=== PATIENT | female | born 1955 ===

== ENCOUNTER 2016-11-27 20:50 | Emergency (ER) | payer OTHER ==
[2016-11-27 21:04] VITALS: BP 136/86; PULSE 75; TEMP 97.5; O2SAT 98
[2016-11-27] MEDS ORDERED: Bacitracin 500 Units/gm Oint Foilpak UD TOP ONE (21:34)
--- NOTE | 2016-11-27 21:34 | C.PDOC ---
History Of Present Illness 61 y/o female comes to ED s/p being bitten on left thigh by daughter's ingrid just prior to arrival. dog's immunizations up to date. pt walked into daughter 's house, and dog was out if its cage and bit patient. Time Seen by Provider: 11/27/16 21:16 Chief Complaint (Nursing): Bite History Per: Patient, Family History/Exam Limitations: no limitations Onset/Duration Of Symptoms: Hrs (1) Current Symptoms Are (Timing): Still Present Location Of Injury: Left: Thigh Quality Of Symptoms: Painful Recent travel outside of the [place]: No Additional History Per: Patient, Family - Animal Bite Description Of The Attack: Entered Animal's Territory Description Of The Animal: Family Pet Reports Animal Appears: Well Reports Animal's Immunization Status: UTD Past Medical History Reviewed: Historical Data, Nursing Documentation, Vital Signs Vital Signs: Last Vital Signs Temp 97.5 F L 11/27/16 21:01 Pulse 75 11/27/16 21:01 Resp 20 11/27/16 22:06 BP 136/86 11/27/16 21:01 Pulse Ox 98 11/27/16 22:23 - Medical History PMH: No Chronic Diseases Surgical History: No Surg Hx Family History: States: Unknown Family Hx - Social History Hx Alcohol Use: No Hx Substance Use: No Review Of Systems Constitutional: Negative for: Fever, Chills Gastrointestinal: Negative for: Nausea, Abdominal Pain Skin: Positive for: Other (dog bite left leg) Neurological: Negative for: Weakness, Numbness Physical Exam - Physical Exam Appears: Non-toxic, No Acute Distress Skin: Normal Color, Warm, Dry, Other (2 area abraded skin left anterior thigh approx 0.5 cm each, with mild ecchymoses surrounding, no active bleeding. tender to palpation. ) Pulses: Left Dorsalis Pedis: Normal, Right Dorsalis Pedis: Normal Neurological/Psych: Oriented x3, Normal Speech, Normal Cognition, Normal Motor, Normal Sensation ED Course And Treatment O2 Sat by Pulse Oximetry: 98 Medical Decision Making Medical Decision Making: dog bite to left thigh- update tetanus, wound care, augmentin. pain relief. wound irrigated with ns, bacitracin and dressing applied. Disposition Counseled Patient/Family Regarding: Diagnosis, Need For Followup, Rx Given - Disposition Referrals: [facility] [Outside] [facility] [Outside] Disposition: HOME/ ROUTINE Disposition Time: 21:53 Condition: STABLE Additional Instructions: Keep wound clean and dry, apply bacitracin 1-2 times a day. Wash daily with soap and water. Take antibiotics as prescribed. Tylenol or Motrin for pain. FOllow up with your doctor or in medical clinic in a few days. Return to ER for any signs of infectin such as redness.. swelling, pus, or any other concerns. Prescriptions: Amoxicillin/Clavulanate [Augmentin 875 MG-125 MG] 1 tab PO BID #20 tab Bacitracin Ointment [Bacitracin] 30 gm TOP BID #1 tube Forms: Gen Discharge Inst [place]ian Print Language: ECUADOREAN - Clinical Impression Clinical Impression: Dog bite of left thigh
[2016-11-27] MEDS ORDERED: Bacitracin 500 Units/gm Oint Foilpak UD ONE (21:37)
[2016-11-27] MEDS ORDERED: Amoxicillin-Clav 875-125 mg Tab PO STA (21:51)
[2016-11-27] MEDS ORDERED: Amoxicillin-Clav 875-125 mg Tab PO ONE (21:59)
[2016-11-27 22:07] VITALS: RESP 20
== END 2016-11-27 22:06 | disposition home or self-care (01) ==
LOC: C.ER 20:50
DX: S71.152A Open bite, left thigh, initial encounter (principal); W54.0XXA Bitten by dog, initial encounter